=== PATIENT | male | born 1980 ===

== ENCOUNTER 2022-10-18 17:06 | Emergency (ER) | payer OTHER ==
[2022-10-18] MEDS ORDERED: Diphtheria,Pertussis(Acell),Tetanus Vaccine 0.5 ML Syringe IM ONE (19:35)
[2022-10-18] MEDS ORDERED: ceFAZolin 2 GM in Sodium Chloride 0.9% 50 ML IV STA (19:47)
[2022-10-18] MEDS ORDERED: Lidocaine 1% 5 ML VIAL INJECT STA (19:49)
[2022-10-18] MEDS ORDERED: Bacitracin Oint 1 GM U/D Packet TOP ONE (20:54)
== END 2022-10-18 21:30 | disposition home or self-care (01) ==
LOC: MW.ED 17:06
DX: S62.653B Nondisplaced fracture of middle phalanx of left middle finger, initial encounter for open fracture (principal); Z23 Encounter for immunization; Z88.6 Allergy status to analgesic agent; Z88.0 Allergy status to penicillin; Z79.899 Other long term (current) drug therapy; W23.1XXA Caught, crushed, jammed, or pinched between stationary objects, initial encounter
CPT/HCPCS: 12002; 73130; 80305; 90471; 90715; 96374; 99283; J0690; J3490